=== PATIENT | male | born 1950 | race Caucasian/White ===

== ENCOUNTER 2018-06-20 13:49 | Emergency (ER) | payer MEDICARE ==
[~2018-06-20] VITALS: Ht 182.9 cm; Wt 90.0 kg
[2018-06-20 14:00] VITALS: BP 174/80
[2018-06-20] MEDS ORDERED: LIDOCAINE-MPF 1%, 5ML ONE (14:14)
[2018-06-20] MEDS ORDERED: DIPH,PERTUSS(ACELL),TET VAC/PF 0.5 ML IM-VACC ONE ×2 (14:14→14:30)
[2018-06-20] MEDS ORDERED: LIDOCAINE 2%, 20ML SQ ONE (14:30)
--- NOTE | 2018-06-20 14:39 | NUR ---
WOUND IRRIGATED. ANN WHITTAKER
--- NOTE | 2018-06-20 15:29 | NUR ---
PAC AT BEDSIDE FOR SUTURES
[2018-06-20] MEDS ORDERED: BACITRACIN ZINC OINT 500U/GM, 0.9 GM ONE (17:23)
== END 2018-06-20 17:46 | disposition home or self-care (01) ==
LOC: ED 17:30
DX: S61.412A Laceration without foreign body of left hand, initial encounter (principal); W31.89XA Contact with other specified machinery, initial encounter; Y93.89 Activity, other specified; Y92.009 Unspecified place in unspecified non-institutional (private) residence as the place of occurrence of the external cause; Y99.8 Other external cause status
CPT/HCPCS: 13132; 90471; 90715